=== PATIENT | female | born 1980 | race Caucasian/White ===

== ENCOUNTER 2021-06-11 06:38 | Emergency (ER) | payer MEDICAID ==
[~2021-06-11] VITALS: Ht 162.6 cm; Wt 103.3 kg
[~2021-06-11 06:38] MED LIST: PREN1TAB27 PO
[2021-06-11 06:39] VITALS: BP 110/72
--- NOTE | 2021-06-11 08:07 | NUR ---
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
[2021-06-11] MEDS ORDERED: DEXAMETHASONE 4 MG TABLET PO ONE (08:30)
[2021-06-11] MEDS ORDERED: BICILLIN-LA 1,200,000 UNITS/2 ML IM ONE (08:30)
[2021-06-11] MEDS ORDERED: DEXAMETHASONE 4 MG TABLET ONE (09:15)
== END 2021-06-11 09:44 | disposition home or self-care (01) ==
LOC: ED 09:06
DX: G89.11 Acute pain due to trauma (principal); J02.0 Streptococcal pharyngitis; M79.672 Pain in left foot; X58.XXXA Exposure to other specified factors, initial encounter; Y93.89 Activity, other specified; Y92.89 Other specified places as the place of occurrence of the external cause; Y99.8 Other external cause status
CPT/HCPCS: 73630; 96372; 99283; J0561